=== PATIENT | female | born 1980 | race Two or more races ===

== ENCOUNTER 2020-02-18 16:58 | Emergency (ER) | payer SELFPAY ==
[~2020-02-18] VITALS: Ht 157.5 cm; Wt 76.6 kg
[2020-02-18 17:01] VITALS: BP 138/99
[2020-02-18] MEDS ORDERED: LIDOCAINE-MPF 1%, 5ML ONE (17:15)
[2020-02-18] MEDS ORDERED: LIDOCAINE 1%-EPI 1:100K, 20ML ONE (17:31)
== END 2020-02-18 18:57 | disposition home or self-care (01) ==
LOC: ED 18:22
DX: S01.01XA Laceration without foreign body of scalp, initial encounter (principal); F17.200 Nicotine dependence, unspecified, uncomplicated; W25.XXXA Contact with sharp glass, initial encounter; Y93.89 Activity, other specified; Y92.098 Other place in other non-institutional residence as the place of occurrence of the external cause; Y99.8 Other external cause status
CPT/HCPCS: 12032; 99284

== ENCOUNTER 2020-02-20 17:28 | Emergency (ER) | payer SELFPAY ==
[~2020-02-20] VITALS: Ht 157.5 cm; Wt 77.7 kg
--- NOTE | 2020-02-20 18:00 | NUR ---
first contact with pt. pt c/o right sided face and neck swelling since this morning. pt was seen here for injury and federico on 02/17. n obleeding/redness noted on wound. pt's aox4. resps even and unlabored. bp/spo2 monitors in place. call light within reach. pa at bedside evaluating at this time.
[2020-02-20 18:02] VITALS: BP 115/76
--- NOTE | 2020-02-20 18:35 | NUR ---
Patient given discharge instructions and they have confirmed that they understand the instructions. Patient ambulatory with steady gait.
== END 2020-02-20 18:36 | disposition home or self-care (01) ==
LOC: ED 18:30
DX: S01.01XA Laceration without foreign body of scalp, initial encounter (principal); L03.811 Cellulitis of head [any part, except face]; F17.200 Nicotine dependence, unspecified, uncomplicated; X58.XXXA Exposure to other specified factors, initial encounter; Y93.89 Activity, other specified; Y92.89 Other specified places as the place of occurrence of the external cause; Y99.8 Other external cause status
CPT/HCPCS: 99283